=== PATIENT | male | born 1965 | race Caucasian/White ===

== ENCOUNTER 2018-10-03 10:58 | Emergency (ER) | payer MEDICAID ==
[~2018-10-03] VITALS: Ht 165.1 cm; Wt 81.6 kg
[2018-10-03 11:00] VITALS: BP 122/75
--- NOTE | 2018-10-03 11:07 | NUR ---
bib friend. aao x4 c/o dry cough x1 month, constant left chest "pressure like" pain radiating to left shoulder & left upper back x 2 weeks worst today, sob at times. denies trauma ,n/v/d, fever. perrla brisk 3 mm, no facial assymetry, full clear speech, equal jenna strength to upper and lower extremities, steady gait. pt placed on full shank cutter. hob up. bed side rails up x1. on low bed position, locked. er to evaluate pt.
--- NOTE | 2018-10-03 11:07 | NUR ---
patient ambulated to bed 9.
[2018-10-03] MEDS ORDERED: KETOROLAC 60 MG/2 ML VIAL IM ONE (11:20)
--- NOTE | 2018-10-03 11:21 | NUR ---
dr westfall at [facility] for pt eval
--- NOTE | 2018-10-03 11:40 | NUR ---
PT AAO X4, FULL CLEAR SPEECH. CONVERSATING APPROPRIATELY WITH FRIEND. NO SIGNS AND SYMPTOMS OF DISTRESS NOTED. WILL CONTINUE TO MONITOR.
[2018-10-03 12:08] VITALS: BP 101/61
--- NOTE | 2018-10-03 12:08 | NUR ---
Patient discharged with v/s stable. Written and verbal after care instructions given and explained. Patient alert, oriented and verbalized understanding of instructions. Ambulatory with steady gait. All questions addressed prior to discharge. ID band removed. Patient advised to follow up with PMD. Rx of MOTRIN, PREDNISONE, NORCO 5MG-325 MG given. Patient educated on indication of medication including possible reaction and side effects. Opportunity to ask questions provided and answered.
== END 2018-10-03 12:08 | disposition home or self-care (01) ==
LOC: MED 10:58
DX: R07.89 Other chest pain (principal); R05 Cough; R06.02 Shortness of breath
CPT/HCPCS: 93005; 96372; 99283; J1885